=== PATIENT | male | born 1975 | race Hispanic/Latino ===

== ENCOUNTER → 2017-12-09 | Day surgery (SDC) | payer OTHER ==
[2017-12-07 16:22] LABS: ANION GAP 15.9 mmol/L (8-16); BLOOD UREA NITROGEN 18 mg/dL (7-26); BUN/CREATININE RATIO 21 (6-25); CALCIUM 9.7 mg/dL (8.4-10.2); CARBON DIOXIDE 23 mmol/L (22-29); CHLORIDE 104 mmol/L (98-107); CREATININE, SERUM 0.86 mg/dL (0.72-1.25); EST GLOMERULAR FILTRATION RATE > 60 ML/MIN (60-); GLUCOSE 168 mg/dL (74-118); POTASSIUM 3.9 mmol/L (3.5-5.1); SODIUM 139 mmol/L (136-145)
[~2017-12-09] MED LIST: ASPIRIN325 MG PO; BUPIVACAINE 0.25% 30ML SDV INJ ONE; CEFAZOLIN SOD 1 GM VIAL ONE; DEXAMETHASONE SOD PHOS INJ 4 MG/ML VIAL ONE; FARXIGA; FENTANYL CITRATE/PF 100MCG/2 ML INJ ONE; IOPAMIDOL 610MG/1ML 300 MG/ML VIAL IV ONE; JANUVIA100 MG PO; KETOROLAC TROMETHAMINE 30 MG/ML VIAL ONE; LEVOFLOXACIN 500MG/D5W 100ML 100 ML IV ONE; LISINOPRIL2.5 MG PO; METFORMIN HCL500 MG PO; MIDAZOLAM HCL 2 MG/2 ML VIAL ONE; MONTELUKAST SOD10 MG PO; NEOMYCIN ONE; NEOMYCIN/POLYMYX/BACITR OINT 0.9 GM PKT ONE; NEOSTIGMINE 1 MG/ML 10ML VIAL ONE; ONDANSETRON HCL INJ 2 MG/ML VIAL ONE; PIOGLITAZONE HC45 MG PO; PROPOFOL IV EMULSION 10 MG/ML 20 ML VIAL ONE; SEVOFLURANE INHAL SOLN 250 ML PEN BTL ONE; SIMVASTATIN20 MG PO; XYZAL5 MG; [UNRECOGNIZED DRUG - OTHER] ONE
[2017-12-09 14:02] VITALS: BP 116/58
--- NOTE | 2018-01-30 02:53 | Operative Report ---
DATE OF PROCEDURE: December 09, 2017 PREOPERATIVE DIAGNOSES 1. Urinary tract infections. 2. Desires permanent sterilization. POSTOPERATIVE DIAGNOSES 1. Urinary tract infections. 2. Desires permanent sterilization. OPERATIONS PERFORMED 1. Bilateral vasectomy. 2. Bilateral regional anesthetic block of both spermatic cords (separate procedure performed for postoperative pain control and not required for actual performance of surgery, which was under general anesthesia). 3. Cystourethroscopy with bilateral ureteral catheterization and retrograde ureteropyelography (separate procedure performed for the urinary tract infections). 4. Interpretation of retrograde ureteropyelography. 5. Supervision of fluoroscopy. No radiologist present. ANESTHESIA: General. COMPLICATION: None. CLINICAL SUMMARY: Eyal Warner is a 42-year-old man, who has had the above preoperative diagnoses. He desires the above procedures. He is aware of the risks of bleeding, infection, injury to adjacent structures, to chronic testicular pain in the usual attendant risks of surgery and anesthesia, which was discussed with the anesthesiologist preoperatively. He understood all these risks and elected to proceed. OPERATIVE PROCEDURE IN DETAIL: Informed consent was verified. Eyal Warner was properly identified, taken to operating room, placed on the cystoscopy table in supine position. Anesthesia was uneventfully begun. The patient's genitalia were then prepared and draped in usual sterile fashion. We isolated the left vas deferens. We utilized the no-scalpel technique. We infiltrated the skin. We spread the skin. We isolated the left vas. We infiltrated the spermatic cord distal to where we were working. In order to perform a cord block. Once that was done, we isolated the vas. We doubly hemoclipped the distal stump and divided the vas. We then doubly hemoclipped the proximal stump and the vas was divided. We minimally scored the vasal mucosa to promote scarring. The testis was then pulled back into its normal anatomical position. We verified hemostasis. An identical procedure and maneuvers were performed on the right hand side. The patient was carefully and gently repositioned in dorsal lithotomy position with all pressure points carefully well padded. He was re-draped. A 22.5-Moroccan cystoscope sheath with the visual obturator in place was atraumatically inserted in the patient's urethra. It was guided down the unremarkable urethra through the sphincteric region through the prostate bed. We entered the patient's bladder. Panendoscopy revealed no suspicious mucosal lesions, no tumors, no stones, and no diverticula. Normally positioned and configured ureteral orifices were identified. An 8-Moroccan catheter was used to cannulate each ureter and retrograde ureteropyelographies were performed. Interpretation of retrograde ureteropyelography: Contrast was instilled in retrograde fashion bilaterally. There were no tumors, no stones, and no diverticula. Unobstructed drainage was observed bilaterally fluoroscopically. The patient's bladder was then drained. The cystoscope was withdrawn. The direct examination revealed a 20-g prostate, smooth non-fluctuant, without any nodules. The nursing staff then dressed the patient's the scrotal neck incision with bacitracin ointment and dry dressings. The patient was uneventfully reversed from anesthesia and taken to recovery room in stable condition. There were no complications to the procedure. Patient tolerated the procedure well. Sponge, needle, and instrument counts were counted correct x2 at the end of the case. Estimated blood loss was minimal. Explicit postop instructions were given including the mandatory utilization of contraception for at least the next 3 months. At which point in time, he will need 2 negative semen analysis prior to pursuing unprotected intercourse. The patient will follow up as an outpatient and on a longer-term basis. Job#: [id number]
== END | disposition home or self-care (01) ==
LOC: OR 08:29
PROVIDERS: ATTEND Urology
DX: Z30.2 Encounter for sterilization (principal); N39.0 Urinary tract infection, site not specified; I10 Essential (primary) hypertension; E11.9 Type 2 diabetes mellitus without complications; Z79.84 Long term (current) use of oral hypoglycemic drugs; Z79.82 Long term (current) use of aspirin; Z01.810 Encounter for preprocedural cardiovascular examination; Z01.812 Encounter for preprocedural laboratory examination
CPT/HCPCS: 36415 ×2; 52005; 55250; 74420; 80048; 82948; 88302; 93005; C1758; J0690; J1100; J1885; J1956; J2250; J2405; J2710; Q9967

== ENCOUNTER → 2018-11-10 | Day surgery (SDC) | payer OTHER ==
[~2018-11-10] MED LIST changes: +ACETAMINOPHEN 1000 MG/100 ML IV ONE; -BUPIVACAINE 0.25% 30ML SDV INJ ONE; +BUPIVACAINE HCL 0.5% INJ 30 ML VIAL INJ ONE; -CEFAZOLIN SOD 1 GM VIAL ONE; +CEFAZOLIN SOD 1 GM/NS 50ML 50 ML IV ONE; -FARXIGA; +FARXIGA PO; -IOPAMIDOL 610MG/1ML 300 MG/ML VIAL IV ONE; -KETOROLAC TROMETHAMINE 30 MG/ML VIAL ONE; -LEVOFLOXACIN 500MG/D5W 100ML 100 ML IV ONE; +LIDOCAINE HCL 2% LOCAL INJ 5 ML SDV VIAL INJ ONE; +METOCLOPRAMIDE HCL 10 MG/2ML VIAL ONE; +MORPHINE SULFATE INJ 10 MG/ML ONE; -NEOMYCIN ONE; -NEOMYCIN/POLYMYX/BACITR OINT 0.9 GM PKT ONE; -ONDANSETRON HCL INJ 2 MG/ML VIAL ONE; +ONDANSETRON HCL INJ 2MG/ML 2ML 2 MG/ML VIAL ONE; +PROMETHAZINE HCL (IM) 25 MG/ML VIAL ONE; -[UNRECOGNIZED DRUG - OTHER] ONE
[2018-11-10 08:53] LABS: ANION GAP 14.4 mmol/L (8-16); BLOOD UREA NITROGEN 14 mg/dL (7-26); BUN/CREATININE RATIO 19 (6-25); CALCIUM 9.3 mg/dL (8.4-10.2); CARBON DIOXIDE 23 mmol/L (22-29); CHLORIDE 103 mmol/L (98-107); CREATININE, SERUM 0.73 mg/dL (0.72-1.25); EST GLOMERULAR FILTRATION RATE > 60 ML/MIN (60-); GLUCOSE 190 mg/dL (74-118); POTASSIUM 4.4 mmol/L (3.5-5.1); SODIUM 136 mmol/L (136-145)
[2018-11-10 13:45] VITALS: BP 115/64
--- NOTE | 2018-12-19 07:31 | Operative Report ---
DATE OF PROCEDURE: 11/10/2018 SURGEON: Hayes Marino MD PREOPERATIVE DIAGNOSES: 1. Phimosis. 2. Balanoposthitis. POSTOPERATIVE DIAGNOSES: 1. Phimosis. 2. Balanoposthitis. OPERATION PERFORMED: 1. Circumcision. 2. Regional nerve block (separate procedure performed for postoperative pain control, not required for actual performance of surgery done under general anesthesia). ANESTHESIA: General. COMPLICATIONS: None. CLINICAL SUMMARY: Eyal Warner is a 43-year-old man with phimosis and balanoposthitis. He is brought for the above procedures. He is aware of the risks of bleeding, infection, injury to adjacent structures, need for additional procedures and elected to proceed. OPERATIVE PROCEDURE IN DETAIL: Informed consent was verified. Eyal Warner was properly identified and taken to the operating room, placed on the operating table in supine position. Anesthesia was uneventfully begun. The patient's genitalia were then shaved, prepared, and draped in usual sterile fashion. Marcaine without epinephrine was then utilized to infiltrate subcutaneously circumferentially at the base of the penis as well as in the region of the dorsal penile nerves. This was done for postoperative pain control, but not required for the actual performance of the surgery, which was done under general anesthesia. Circumferential incision was then made overlying the alvarado of the glans penis. The foreskin was then fully retracted and secondary incision made approximately 5 mm away from the alvarado of the glans penis and along the inner preputial skin. A sleeve circumcision was then performed. The foreskin was removed. Pinpoint electrocautery was utilized to achieve hemostasis. The patient's incision was then approximated with 4-0 chromic suture in running fashion. Excellent cosmetic result was achieved. Sterile dressing was applied with bacitracin ointment followed by Xeroform gauze followed by loose-fitting Ermelinda and the patient was uneventfully reversed from anesthesia and taken to the recovery room in stable condition. There were no complications to the procedure. The patient tolerated the procedure well. Sponge, needle, and instrument counts were of course correct x2 at the end of the case. Estimated blood loss was minimal. Explicit postoperative instructions were given. We will follow the patient up in the office. Hayes Marino MD [place]/[facility]RIEL /[id number]
== END | disposition home or self-care (01) ==
LOC: OR 06:59
PROVIDERS: ATTEND Urology
DX: N47.1 Phimosis (principal); N47.6 Balanoposthitis; N39.0 Urinary tract infection, site not specified; Z01.810 Encounter for preprocedural cardiovascular examination; Z01.812 Encounter for preprocedural laboratory examination
CPT/HCPCS: 36415; 54150; 80048; 82948; 88304; 93005; J0131; J0690; J1100; J2001; J2250; J2270; J2405; J2550; J2704; J2710; J2765; J3010